=== PATIENT | male | born 1970 | race African-American/Black ===

== ENCOUNTER 2021-09-17 23:58 | Emergency (ER) | payer SELFPAY ==
[2021-09-18] MEDS ORDERED: Sodium Chloride 0.9% 1,000 ML IV SCH (00:15)
[2021-09-18] MEDS ORDERED: Ondansetron 4 MG/2 ML SDV IVPUSH ONE (00:15)
[2021-09-18 01:27] LABS: ESTIMATED GFR 73 mL/min (>60)
[2021-09-18] MEDS ORDERED: Sodium Chloride 0.9% 10 ML Syringe FLUSH ONE (01:32)
[2021-09-18] MEDS ORDERED: Iopamidol 612 MG/ML 100 ML Bottle IVPUSH ONE (01:32)
== END 2021-09-18 02:55 | disposition home or self-care (01) ==
LOC: JD.ED 23:58 → EDBD 23:58 → JD.ED 09-18 02:55
DX: R10.11 Right upper quadrant pain (principal)
CPT/HCPCS: 36415; 74177; 76705; 80053; 83690; 85007; 85027; 96361; 96374; 99285; J2405; J3490; J7030; Q9967